=== PATIENT | female | born 1960 | race Two or more races ===

== ENCOUNTER 2023-04-26 11:26 | Emergency (ER) | payer OTHER ==
[~2023-04-26] VITALS: Ht 154.9 cm; Wt 56.7 kg
[2023-04-26] MEDS ORDERED: NASAL MIST126 ML (12:56)
== END 2023-04-26 13:31 | disposition home or self-care (01) ==
LOC: ER 11:26
DX: H60.8X3 Other otitis externa, bilateral (principal)